=== PATIENT | female | born 1980 | race African-American/Black ===

== ENCOUNTER 2017-12-09 | Emergency (ER) | payer SELFPAY | END 2017-12-09 00:30 | disposition home or self-care (01) | LOC: BURERS | DX: R06.02 Shortness of breath (principal); F32.9 Major depressive disorder, single episode, unspecified; F17.210 Nicotine dependence, cigarettes, uncomplicated | CPT/HCPCS: 99283 ==

== ENCOUNTER 2018-01-31 05:30 | Emergency (ER) | payer SELFPAY ==
[2018-01-31] MEDS ORDERED: Ibuprofen 800 MG TAB ONE (05:51)
[2018-01-31] MEDS ORDERED: HYDROcodone/Acetaminophen 10/325 mg Tablet ONE (05:51)
== END 2018-01-31 05:55 | disposition home or self-care (01) ==
LOC: BURERS 05:30
DX: K04.7 Periapical abscess without sinus (principal); K02.9 Dental caries, unspecified; K03.81 Cracked tooth; F17.210 Nicotine dependence, cigarettes, uncomplicated; Z79.899 Other long term (current) drug therapy
CPT/HCPCS: 99282

== ENCOUNTER 2018-02-07 20:14 | Emergency (ER) | payer SELFPAY ==
[2018-02-07] MEDS ORDERED: Acetaminophen/Codeine 30-300mg Tablet ONE (20:39)
[2018-02-07] MEDS ORDERED: Bupivacaine 0.25% 10 ML VIAL ONE (20:40)
[2018-02-07] MEDS ORDERED: Bupivacaine 0.5% 10 ML VIAL ONE (20:41)
== END 2018-02-07 20:52 | disposition home or self-care (01) ==
LOC: BURERS 20:14
DX: K04.7 Periapical abscess without sinus (principal); F32.9 Major depressive disorder, single episode, unspecified; F17.210 Nicotine dependence, cigarettes, uncomplicated
CPT/HCPCS: 64400; J3490; S0020

== ENCOUNTER 2021-08-21 19:37 | Emergency (ER) | payer SELFPAY ==
[2021-08-21] MEDS ORDERED: Bupivacaine 0.5% 10 ML VIAL ONE (20:00)
[2021-08-21] MEDS ORDERED: Morphine 4 MG/ML VIAL ONE (20:02)
[2021-08-21] MEDS ORDERED: Clindamycin 150 MG CAP ONE (20:18)
[2021-08-21] MEDS ORDERED: Lidocaine Viscous Sol 2% 15 ml UD Cup ONE (20:31)
[2021-08-21] MEDS ORDERED: HYDROcodone/Acetaminophen 5/325 mg Tablet ONE (20:55)
== END 2021-08-21 21:00 ==
LOC: BURERS 19:37
DX: K05.10 Chronic gingivitis, plaque induced (principal); F17.210 Nicotine dependence, cigarettes, uncomplicated
CPT/HCPCS: 64400; 96374; J2270; J3490

== ENCOUNTER 2022-03-03 11:55 | Emergency (ER) | payer SELFPAY ==
[2022-03-03] MEDS ORDERED: Ketorolac Tromethamine 30 MG/ML VIAL ONE (12:18)
[2022-03-03] MEDS ORDERED: Ciprofloxacin 500 MG TAB ONE (12:18)
[2022-03-03] MEDS ORDERED: Ciprofloxacin Lactate/D5W 400 mg/200 ml Premix ONE (12:19)
[2022-03-03 12:42] LABS: Bilirubin Negative (Negative); Blood, Urine Small (Negative); Clarity Turbid (Clear); Glucose, Urine (Dipstick) Negative (Negative); Ketone, Urine Negative (Negative); Leukocyte Large (Negative); Nitrite Positive (Negative); Protein, Urine (Dipstick) 100 mg/dL (Neg-Trace); Specific Gravity, Urine 1.015 (1.005-1.030); Urobilinogen 0.2 mg/dL (Less than 2)
[2022-03-03 12:44] LABS: Pregnancy Test - Urine (BHCG) Negative (Negative); Pregu Control Background? CLEAR/WHITE (CLR/WHITE); Pregu Control Bar Appear? YES (CONTROL BAR); Specific Gravity 1.015 (1.002-1.036)
[2022-03-03 12:49] LABS: Bacteria/HPF 2+ HPF (None Seen); RBC/HPF 0-3 HPF (0-3); Squamous Epithelial 0-3 HPF (0-3); WBC/HPF 21-50 HPF (0-3)
[2022-03-03 12:56] LABS: #Basophils 0.2 thou/uL (0.0-0.2); #Lymphocytes 1.6 thou/uL (1.20-3.40); #Neutrophils 11.1 thou/uL (1.40-6.50); %Basophils 1.1 % (0.0-1.0); %Eosinophils 0.1 % (0.0-10.0); %Lymphocytes 11.4 % (21.0-51.0); %Monocytes 7.5 % (0.0-10.0); %Neutrophils 79.9 % (42.0-75.0); Hemoglobin 13.1 g/dL (12.0-16.0); Mean Corpuscular HGB CONC 34.7 g/dL (32.0-36.0); Mean Corpuscular Hemoglobin 31.4 pg (27.0-31.0); Mean Corpuscular Volume 90.7 fL (78.0-98.0); Mean Platelet Volume 7.3 fL (7.4-10.4); Platelet Count 273 thou/uL (130-400); RBC Distribution Width 12.9 % (11.5-14.5); Red Blood Cell (RBC) Count 4.17 mill/uL (4.20-5.40); White Blood Cell (WBC) Count 13.9 thou/uL (4.8-10.8)
[2022-03-03] MEDS ORDERED: Morphine 4 MG/ML VIAL ONE (13:00)
[2022-03-03 13:09] LABS: ALT (SGPT) 10 U/L (8-55); AST (SGOT) 11 U/L (5-34); Albumin 3.6 g/dL (3.5-5.0); Alkaline Phosphatase 43 U/L (40-110); Anion Gap 14 mmol/L (10-20); BUN (Urea Nitrogen) 6 mg/dL (7.0-18.7); Bilirubin, Total 0.4 mg/dL (0.2-1.2); Calc. Creatinine Clearance 0 mL/min (70-130); Calcium 8.5 mg/dL (7.8-10.44); Carbon Dioxide 19 mmol/L (22-29); Chloride 108 mmol/L (98-107); Globulin 3.7 g/dL (2.4-3.5); Glucose 108 mg/dL (70-105); Potassium 3.4 mmol/L (3.5-5.1); Protein, Total 7.3 g/dL (6.0-8.3); Sodium 138 mmol/L (136-145)
== END 2022-03-03 13:45 | disposition home or self-care (01) ==
LOC: BURERS 11:55
DX: N12 Tubulo-interstitial nephritis, not specified as acute or chronic (principal); F17.210 Nicotine dependence, cigarettes, uncomplicated
CPT/HCPCS: 36415; 80053; 81003; 81015; 81025; 85025; 96365; 96375; J0744; J1885; J2270

== ENCOUNTER 2022-06-11 13:21 | Emergency (ER) | payer SELFPAY ==
[2022-06-11] MEDS ORDERED: Ibuprofen 800 MG TAB ONE (13:51)
[2022-06-11] MEDS ORDERED: HYDROcodone/Acetaminophen 10/325 mg Tablet ONE (13:51)
== END 2022-06-11 13:56 | disposition home or self-care (01) ==
LOC: BURERS 13:21
DX: K02.9 Dental caries, unspecified (principal); R59.0 Localized enlarged lymph nodes
CPT/HCPCS: 99282